=== PATIENT | female | born 1975 | race Hispanic/Latino ===

== ENCOUNTER → 2020-12-11 | Outpatient (CLI) | payer MEDICARE ==
[~2020-12-11] VITALS: Ht 7.6 cm; Wt 114.3 kg
== END | disposition home or self-care (01) ==
LOC: DTH 12:10
PROVIDERS: ATTEND Surgery
DX: E66.01 Morbid (severe) obesity due to excess calories (principal); E11.9 Type 2 diabetes mellitus without complications
CPT/HCPCS: 97802

== ENCOUNTER → 2021-01-08 | Outpatient (CLI) | payer MEDICARE ==
[2021-01-08 12:39] LABS: BASOPHILS % (AUTO) 0.8 % (0.0-5.0); EOSINOPHILS % (AUTO) 5.1 % (0.0-8.0); HEMATOCRIT 40.3 % (36-48); LYMPHOCYTES % (AUTO) 30.8 % (21.0-51.0); MEAN CORPUSCULAR HEMOGLOBIN 30.7 pg (27.0-33.0); MEAN CORPUSCULAR HGB CONC 34.2 g/dL (32.0-36.0); MEAN CORPUSCULAR VOLUME 89.6 fL (79-99); MONOCYTES % (AUTO) 6.1 % (3.0-13.0); NEUTROPHILS % (AUTO) 56.5 % (40.0-77.0); PLATELET COUNT (AUTO) 236 K/uL (130-400); RED CELL DISTRIBUTION WIDTH 13.2 % (11.0-15.5); WHITE BLOOD COUNT (AUTO) 7.7 K/uL (4.8-10.8)
[2021-01-08 12:49] LABS: HEMOGLOBIN A1C 8.7 % (4.0-6.0)
[2021-01-08 13:31] LABS: ALBUMIN 3.6 g/dL (3.5-5.0); BILIRUBIN,TOTAL 0.7 mg/dL (0.2-1.0); CREATININE 0.8 mg/dL (0.5-1.5); MAGNESIUM 1.6 mg/dL (1.80-2.40); POTASSIUM 4.1 mmol/L (3.5-5.1); THYROID STIMULATING HORMONE 2.32 uIU/mL (0.36-3.74); TOTAL PROTEIN, SERUM 7.4 g/dL (6.0-8.3)
== END | disposition home or self-care (01) ==
LOC: DTH 10:45
PROVIDERS: ATTEND Surgery
DX: E66.01 Morbid (severe) obesity due to excess calories (principal); I10 Essential (primary) hypertension; E11.9 Type 2 diabetes mellitus without complications; Z98.84 Bariatric surgery status; Z68.41 Body mass index [BMI] 40.0-44.9, adult; M25.50 Pain in unspecified joint
CPT/HCPCS: 36415; 80053; 80061; 82306; 82607; 82746; 83036; 83540; 83735; 84207; 84425; 84443; 84446; 84481; 84590; 84630; 85025; 97803

== ENCOUNTER 2021-02-07 07:03 | Day surgery (SDC) | payer MEDICARE ==
[~2021-02-07] VITALS: Ht 162.6 cm; Wt 113.4 kg
[~2021-02-07 07:03] MED LIST: CALC750T4 PO; LOSA1TAB42 PO; METF-444 PO
[2021-02-07] MEDS ORDERED: SODIUM CHLORIDE 0.9% 1000ML 1,000 ML IV ONE (07:08)
[2021-02-07 08:01] VITALS: BP 168/99
[2021-02-07] MEDS ORDERED: PROPOFOL 10 MG/ML 20ML VIAL IV ONE (09:01)
[2021-02-07] MEDS ORDERED: MIDAZOLAM HCL 1 MG/ML 2ML VIAL ONE (09:01)
[2021-02-07] MEDS ORDERED: GLYCOPYRROLATE 1 MG/5 ML SYRINGE ONE (09:01)
[2021-02-07] MEDS ORDERED: KETAMINE 50MG/ML SYRINGE 50 MG/ML DISP.SYRIN IV ONE (09:01)
[2021-02-07] MEDS ORDERED: LIDOCAINE PF 100MG/5ML (2%) SYRINGE 5ML ONE (09:01)
[2021-02-07 09:20] VITALS: BP 178/93
== END 2021-02-07 09:55 | disposition home or self-care (01) ==
LOC: ENDO 07:03 → DAH 07:03 → ENDO 09:55
PROVIDERS: ATTEND Surgery
DX: K21.9 Gastro-esophageal reflux disease without esophagitis (principal); I10 Essential (primary) hypertension; Z20.822 Contact with and (suspected) exposure to COVID-19; E11.9 Type 2 diabetes mellitus without complications; E66.01 Morbid (severe) obesity due to excess calories; Z98.891 History of uterine scar from previous surgery; Z90.49 Acquired absence of other specified parts of digestive tract; Z79.899 Other long term (current) drug therapy; Z68.42 Body mass index [BMI] 45.0-49.9, adult; Z83.3 Family history of diabetes mellitus; Z82.49 Family history of ischemic heart disease and other diseases of the circulatory system; Z80.42 Family history of malignant neoplasm of prostate; Z79.84 Long term (current) use of oral hypoglycemic drugs; Z98.890 Other specified postprocedural states
CPT/HCPCS: 43235; 82948; 87635; A4215 ×2; A4221; A4222; A4223; A4606; A4620; A4657; A4663; C9803; J2001; J2250; J2704; J3490 ×2; J7030

== ENCOUNTER → 2021-02-10 | Outpatient (CLI) | payer MEDICARE ==
[~2021-02-10] VITALS: Ht 160 cm; Wt 114.8 kg
[2021-02-14 11:19] VITALS: BP 186/101
[2021-02-14 11:25] VITALS: BP 165/80
== END | disposition home or self-care (01) ==
LOC: DTH 11:02
PROVIDERS: ATTEND Surgery
DX: E66.01 Morbid (severe) obesity due to excess calories (principal); E11.9 Type 2 diabetes mellitus without complications; I10 Essential (primary) hypertension; M19.91 Primary osteoarthritis, unspecified site
CPT/HCPCS: 97803

== ENCOUNTER 2021-07-22 09:30 | Emergency (ER) | payer MEDICARE ==
[~2021-07-22] VITALS: Ht 162.6 cm; Wt 89.4 kg
[~2021-07-22 09:30] MED LIST changes: -CALC750T4 PO
[2021-07-22 09:36] VITALS: BP 176/111
[2021-07-22] MEDS ORDERED: NAPROXEN 500 MG TABLET PO SCH (10:00)
[2021-07-22] MEDS ORDERED: LIDOCAINE HCL 1% 10 ML VIAL ONE (10:52)
[2021-07-22] MEDS ORDERED: TRIAMCINOLONE ACETONIDE 40 MG/ML 1ML VIAL INJ SCH (11:00)
[2021-07-22] MEDS ORDERED: CELE-84 PO (12:09)
[2021-07-22 14:59] LABS: APPEARANCE BODY FLUID SLIGHTLY CLOUDY (CLEAR); BODY FLUID WBC 102 /cu. mm.; COLOR,BODY FLUID YELLOW (LT YELLOW); SPECIMENTYPE,BODY FLUID SYNOVIAL; TOTAL VOLUME,BODY FLUID 44 mL
[2021-07-22 15:01] LABS: BODY FLUID RBC 124 /cu. mm.
[2021-07-22 15:19] LABS: BF EOSINOPHIL 2 %; BF LYMPHOCYTE 59 %; BF MONOCYTE 19 %
== END 2021-07-22 12:32 | disposition home or self-care (01) ==
LOC: EDH 09:30
DX: M25.462 Effusion, left knee (principal); M25.562 Pain in left knee; E11.9 Type 2 diabetes mellitus without complications; I10 Essential (primary) hypertension; Z79.1 Long term (current) use of non-steroidal anti-inflammatories (NSAID); Z79.84 Long term (current) use of oral hypoglycemic drugs; Z79.899 Other long term (current) drug therapy; Z98.84 Bariatric surgery status
CPT/HCPCS: 20610; 73562; 84560; 87071; 87205; 89051; 99284; J3301; J3490

== ENCOUNTER 2021-09-02 16:26 | Emergency (ER) | payer MEDICARE ==
[~2021-09-02] VITALS: Ht 162.6 cm; Wt 88.5 kg
[~2021-09-02 16:26] MED LIST changes: +CELE-84 PO
[2021-09-02] MEDS ORDERED: LIDOCAINE HCL 400MG/20ML VIAL ONE (18:08)
[2021-09-02 18:59] VITALS: BP 180/80
== END 2021-09-02 19:08 | disposition home or self-care (01) ==
LOC: EDH 16:26
DX: M25.462 Effusion, left knee (principal); E11.9 Type 2 diabetes mellitus without complications; I10 Essential (primary) hypertension; Z79.1 Long term (current) use of non-steroidal anti-inflammatories (NSAID); Z79.84 Long term (current) use of oral hypoglycemic drugs; Z79.899 Other long term (current) drug therapy; Z98.84 Bariatric surgery status
CPT/HCPCS: 20610; 73562; 89060; 99284; J3490

== ENCOUNTER 2022-01-27 23:31 | Emergency (ER) | payer MEDICARE ==
[~2022-01-27] VITALS: Ht 162.6 cm; Wt 79.8 kg
[2022-01-28] MEDS ORDERED: MAG/ALUM/SIMETH 30 ML UDCUP PO ONE (00:30)
[2022-01-28] MEDS ORDERED: HYOSCYAMINE SULFATE 0.125 MG TAB.SUBL SL ONE (00:30)
[2022-01-28 00:44] LABS: BASOPHILS % (AUTO) 0.3 % (0.0-5.0); EOSINOPHILS % (AUTO) 1.6 % (0.0-8.0); HEMATOCRIT 36.1 % (36-48); LYMPHOCYTES % (AUTO) 11.3 % (21.0-51.0); MEAN CORPUSCULAR HEMOGLOBIN 31.6 pg (27.0-33.0); MEAN CORPUSCULAR HGB CONC 34.6 g/dL (32.0-36.0); MEAN CORPUSCULAR VOLUME 91.2 fL (79-99); MONOCYTES % (AUTO) 8.7 % (3.0-13.0); NEUTROPHILS % (AUTO) 77.8 % (40.0-77.0); PLATELET COUNT (AUTO) 175 K/uL (130-400); RED BLOOD CELL COUNT(AUTO) 3.96 MIL/uL (4.00-5.50); RED CELL DISTRIBUTION WIDTH 12.3 % (11.0-15.5); WHITE BLOOD COUNT (AUTO) 6.1 K/uL (4.8-10.8)
[2022-01-28] MEDS ORDERED: ACETAMINOPHEN 500 MG TABLET ONE (00:44)
[2022-01-28 00:58] LABS: CREATININE 0.7 mg/dL (0.5-1.5); POTASSIUM 3.6 mmol/L (3.5-5.1)
[2022-01-28 01:04] LABS: ALBUMIN 3.8 g/dL (3.5-5.0); BILIRUBIN,TOTAL 0.5 mg/dL (0.2-1.0); TOTAL PROTEIN, SERUM 6.8 g/dL (6.0-8.3)
[2022-01-28 06:05] VITALS: BP 149/85
[2022-01-28] MEDS ORDERED: FAMO-136 PO (06:37)
[2022-01-28] MEDS ORDERED: NIRM1TAB PO (06:37)
[2022-01-28] MEDS ORDERED: ACETAMINOPHEN 500 MG TABLET PO SCH (07:00)
== END 2022-01-28 06:57 | disposition home or self-care (01) ==
LOC: EDH 23:31
DX: U07.1 COVID-19 (principal); F41.9 Anxiety disorder, unspecified; R10.13 Epigastric pain; I10 Essential (primary) hypertension; Z79.1 Long term (current) use of non-steroidal anti-inflammatories (NSAID); Z79.84 Long term (current) use of oral hypoglycemic drugs; Z79.899 Other long term (current) drug therapy; Z98.84 Bariatric surgery status
CPT/HCPCS: 36415; 71045; 80053; 81025; 82550; 83690; 84484; 85025; 87635; 87804 ×2; 87880; 93005; 99285; C9803

== ENCOUNTER 2025-03-28 20:54 | Emergency (ER) | payer MEDICARE ==
[~2025-03-28] VITALS: Ht 162.6 cm; Wt 75.3 kg
[~2025-03-28 20:54] MED LIST changes: +ACET-2743 PO; +ACET-3859 PO; +AEC81 PO; +CELE-125 PO; -CELE-84 PO; +FAMO-136 PO; +HYDR-3421 PO; +LOSA-422 PO; +NIRM1TAB PO
[2025-03-28 21:37] LABS: IMMATURE GRANULOCYTE ABSOLUTE 0.00 K/uL (0-1); NUCLEATED RED BLOOD CELLS 0.0 % (0.0-0.19); PLATELET COUNT (AUTO) 261 K/uL (130-400); RED BLOOD CELL COUNT(AUTO) 3.92 MIL/uL (4.00-5.50); RED CELL DISTRIBUTION WIDTH 13.4 % (11.0-15.5); WHITE BLOOD COUNT (AUTO) 6.3 K/uL (4.8-10.8)
--- NOTE | 2025-03-28 21:39 | ERN ---
ED Note History of Present Illness Stated Complaint: C/O PAIN WITH BURNING WHEN VOIDING X 1 WK Chief Complaint: Painful Urination Time Seen by MD: 20:56 Time Seen by Midlevel: 20:56 Dictation: The patient is a 49-year-old female with a history of diabetes, hypertension who presents to the emergency department with complaints of two weeks of burning urination. Patient reports she has been treating herself antibiotics from [facility] and reports she was on penicillin and Bactrim but continues with the the symptoms. Patient denies any fevers. Denies any flank pain. Denies any vomiting or diarrhea. Patient reports that she is supposed to be on antihypertensive medication but she is noncompliant because she states her losartan makes her feel bad. Allergies: Coded Allergies: No Known Allergies (Unverified Allergy, Unknown, 12/18/22) No Known Drug Allergies (Unverified Allergy, Unknown, 02/06/21) Home Meds Active Scripts Acetaminophen (Acetaminophen) 325 Mg Tablet, 650 MG PO QID for 10 Days, #60 TAB Prov:GLORIA MELENDREZ MD 06/16/22 Hydroxyzine HCl (Hydroxyzine HCl) 25 Mg Tablet, 25 MG PO TID, #30 TAB Prov:DULCE MARIA SUANDERS 02/09/22 Nirmatrelvir/Ritonavir (Paxlovid Co-Pack (Eua)) 1 Each Tablet, 1 EACH PO BID, #10 PACK 0 Refills Prov:CHANTEL DINERO MD 01/28/22 Famotidine (Pepcid) 20 Mg Tablet, 20 MG PO BID, #30 TAB 0 Refills Prov:CHANTEL DINERO MD 01/28/22 Celecoxib (Celecoxib) 200 Mg Capsule, 200 MG PO DAILY, #20 CAP Prov:AIDA CRUZ MD 07/22/21 Reported Medications Metformin HCl (Metformin HCl) 500 Mg Tablet, 500 MG PO BID, TAB 02/06/21 Losartan/Hydrochlorothiazide (Losartan-Hctz 100-12.5 mg Tab) 1 Each Tablet, 1 EACH PO DAILY, TAB 02/06/21 Losartan/Hydrochlorothiazide (Hyzaar 50-12.5 Tablet) 1 Each Tablet, 1 EACH PO DAILY, TAB 01/22/21 Aspirin (ASPIRIN 81 MG ECTAB) 81 Mg Ectab, 81 MG PO DAILY, TAB.EC 01/22/21 Acetaminophen (Tylenol Extra Strength) 500 Mg Tablet, 1000 MG PO Q4PRN, TAB 01/22/21 Past Medical History Past Medical History: Diabetes-Type II, Hypertension Surgical History: Other Surgical History Other: GASTRIC BYPASS Family History: Negative Social History: Negative, Lives with family History: Not Applicable RN Note Reviewed/Agreed w/PFSH: Yes Review of System Dictation Constitutional: Negative for fever,chills, and weight loss Eyes: Negative for injury, pain,redness, and discharge ENT: Negative for injury,pain or swelling Cardiovascular: Negative for chest pain, palpitations, and edema Respiratory: Negative for shortness of breath, cough, and wheezing, Abdomen/GI: Negative for abdominal pain, nausea, vomiting, diarrhea, and constipation Back: Negative for injury and pain : Positive for burning urination MS/Extremity: Negative for injury and deformity Skin: Negative for rash, and discoloration Neuro: Negative for headache, weakness, numbness, tingling, and seizure Psych: Negative for suicide ideation, homicidal ideation, and hallucinations Initial Vital Sign VS Vital Signs Date Time Temp Pulse Resp B/P (MAP) Pulse Ox O2 Delivery O2 Flow Rate FiO2 03/28/25 20:56 97.9 70 18 205/105 99 Room Air 03/28/25 23:01 0 21 Physical Exam Dictation Vital Signs reviewed General Appearance: Alert, oriented x 3, no acute distress, well developed, nourished. Head and Face: non-traumatic. Eyes: PERRL, pink conjunctivas, eyelid no trauma, anterior chamber with arcus senilis. Ears: Pinnas intact and no signs of trauma or erythema ear canals clear and no discharge TM no erythema Nose: No discharge, no bleeding. Oropharynx: Mouth normal, tongue pink. pharynx clear,no erythema, tonsils no exudates, no abscesses noted, mucous membrane moist Neck: Supple, non-tender, no thyromegaly, no masses, no JVD, no bruits Breast:Deferred Chest:No tenderness, no crepitus, no paradoxical movement, no retractions Lungs:Clear, well-ventilated, symmetric, no rales, no wheezing, no rhonchi, no stridor, good breath sounds bilaterally Heart: Regular rate, regular rhythm, no murmur, no gallops Vascular: no peripheral edema, Abdomen: Soft, positive bowel sounds, nondistended, no guarding, nontender, no rebound, no masses no hepatomegaly, no splenomegaly, no Quach's sign, no hernias. Rectal: Deferred Genital: Deferred Neurological: Normal speech, motor function intact, sensory function intact , upper extremities equal in strength, lower extremities equal in strength, no facial droop Musculoskeletal: Neck nontender, full range of motion, back nontender, full range of motion, Extremities: nontender, full range of motion Skin: Color pink, dry, no turgor, no rash, no lacerations, no abrasions, no contusions. Lymphatic: Deferred Results (Laboratory/Radiology) Laboratory/Radiology Laboratory Tests Test 03/28/25 21:02 03/28/25 21:25 Urine Color DARK-YELLOW (YELLOW) Urine Appearance CLEAR (CLEAR) Urine pH 6.0 (5.0-8.0) Urine Specific Hematite 1.022 (1.001-1.031) Urine Protein NEGATIVE mg/dL (NEGATIVE) Urine Glucose (UA) NEGATIVE mg/dL (NEGATIVE) Urine Ketones NEGATIVE mg/dL (NEGATIVE) Urine Occult Blood NEGATIVE (NEGATIVE) Urine Nitrate 1+ (NEGATIVE) H Urine Bilirubin NEGATIVE mg/dL (NEGATIVE) Urine Urobilinogen 2.0 mg/dL (0.2-1.0) H Urine Leukocyte Esterase NEGATIVE Trace/uL Urine RBC 2-5 /HPF (0-1) H Urine WBC 2-5 /HPF (0-1) H Urine Squamous Epithelial Cells RARE /HPF (0-2) Urine Bacteria None /HPF (None Seen) Urine HCG, Qualitative NEGATIVE (NEGATIVE) White Blood Count 6.3 K/uL (4.8-10.8) Red Blood Count 3.92 MIL/uL (4.00-5.50) L Hemoglobin 12.4 g/dL (12.0-16.0) Hematocrit 36.2 % (36-48) Mean Corpuscular Volume 92.3 fL (79-99) Mean Corpuscular Hemoglobin 31.6 pg (27.0-33.0) Mean Corpuscular Hemoglobin Concent 34.3 g/dL (32.0-36.0) Red Cell Distribution Width 13.4 % (11.0-15.5) Platelet Count 261 K/uL (130-400) Mean Platelet Volume 9.7 fL (7.5-10.5) Immature Granulocyte % (Auto) 0.0 % (0-1) Neutrophils (%) (Auto) 49.0 % (40.0-77.0) Lymphocytes (%) (Auto) 41.9 % (21.0-51.0) Monocytes (%) (Auto) 6.3 % (3.0-13.0) Eosinophils (%) (Auto) 2.2 % (0.0-8.0) Basophils (%) (Auto) 0.6 % (0.0-5.0) Neutrophils # (Auto) 3.1 K/uL (1.8-7.7) Lymphocytes # (Auto) 2.7 K/uL (1.0-4.8) Monocytes # (Auto) 0.4 K/uL (0.1-1.0) Eosinophils # (Auto) 0.14 K/uL (0.00-0.70) Basophils # (Auto) 0.04 K/uL (0.00-0.20) Absolute Immature Granulocyte (auto 0.00 K/uL (0-1) Nucleated Red Blood Cells 0.0 % (0.0-0.19) Sodium Level 141 mmol/L (136-145) Potassium Level 3.9 mmol/L (3.5-5.1) Chloride Level 106 mmol/L (101-111) Carbon Dioxide Level 32 mmol/L (21-32) Blood Urea Nitrogen 16 mg/dL (7-18) Creatinine 0.7 mg/dL (0.5-1.0) Glomerular Filtration Rate Calc 107 mL/min (>90) Random Glucose 94 mg/dL (70-105) Total Calcium 8.5 mg/dL (8.5-10.1) Labs Reviewed?: Yes ED Course ED Course Orders Procedure Category Date Status Time Urinalysis Profile LAB 03/28/25 Complete 21:10 ,Urine Test LAB 03/28/25 Complete 21:10 Cbc With Differential LAB 03/28/25 Complete 21:10 Basic Metabolic Panel LAB 03/28/25 Complete 21:10 Culture Urine HAYES 03/28/25 In Process 21:49 Ceftriaxone 1g Vial PHA 03/28/25 Complete (Rocephine 1g Inj) 22:00 Hydralazine 20mg Inj PHA 03/28/25 Complete (Apresoline 20mg In 22:30 Hydralazine 20mg Inj PHA 03/28/25 Transmitted (Apresoline 20mg In 23:30 Current Medications Medications (Trade) Dose Ordered Sig/Med Route PRN Reason Start Time Stop Time Status Last Admin Dose Admin Ceftriaxone Sodium (ROCEphine 1G INJ) 1 gm ONCE ONCE IM 03/28/25 22:00 03/28/25 22:01 DC 03/28/25 22:26 Hydralazine HCl (APRESOLine 20MG INJ) 10 mg ONCE ONCE IV 03/28/25 22:30 03/28/25 22:31 DC 03/28/25 22:26 Vital Signs Date Time Temp Pulse Resp B/P (MAP) Pulse Ox O2 Delivery O2 Flow Rate FiO2 03/28/25 23:01 98.1 79 16 177/101 100 Room Air* 0 21 03/28/25 20:56 97.9 70 18 205/105 99 Room Air Medical Decision Making MDM The patient is a 49-year-old female with a history of diabetes, hypertension who presents to the emergency department with complaints of two weeks of burning urination. Patient reports she has been treating herself antibiotics from [place] and reports she was on penicillin and Bactrim but continues with the the symptoms. Patient denies any fevers. Denies any flank pain. Denies any vomiting or diarrhea. Patient reports that she is supposed to be on antihypertensive medication but she is noncompliant because she states her losartan makes her feel bad. CBC showed no leukocytosis, no anemia, chemistry showed no electrolyte i mbalance, normal renal function urinalysis positive for nitrites. Patient giving a dose of Rocephin. Patient also noted to be hypertensive although asymptomatic. Reports she is noncompliant with her hypertension medication but she reports that also the hospitalist make her nervous and her blood pressure goes up. On physical exam patient is in no acute distress, nontender abdomen, neurologically intact. Patient was giving IV hydralazine. Blood pressure improving. Patient reports she has her medications at home. Instructed to take her medications for her blood pressure and patient educated on the risks of uncontrolled hypertension. Patient will be discharged to follow up with PCP and instructed to follow up on urine cultures Differential diagnosis: UTI, sepsis, dehydration, electrolyte imbalance Need for hospitalization: Patient does not meet criteria for hospitalization. There are no social concerns with this patient. DX & DISP Disposition: Discharge Departure Impression: Primary Impression: UTI (urinary tract infection) Additional Impression: Uncontrolled hypertension Condition: Stable Scripts Nitrofurantoin Monohyd/M-Cryst (Macrobid 100 mg Capsule) 100 Mg Capsule 1 CAP PO BID for 5 Days, #10 CAP 0 Refills Prov: SAVANA HOLLEY 03/28/25 Additional Instructions: Your labs were unremarkable but your urine did show you have a urinary tract infection. Take your antibiotics as prescribed and until finished. You will need to follow up on urine culture in about who three days. Follow up with your primary doctor for this. I advised you continue taking your blood pressure m edication to avoid any further complications. Follow up with your primary doctor in 1-2 days. FOLLOW-UP WITH PRIMARY CARE PROVIDER IN 1 TO 2 DAYS. TAKE MEDICATIONS DIRECTED HERE IN THE EMERGENCY ROOM. OKAY TO CONTINUE HOME MEDICATIONS UNLESS OTHERWISE DISCUSSED DURING YOUR VISIT IN THE EMERGENCY ROOM TODAY. RETURN TO YOUR NEAREST EMERGENCY ROOM IF SYMPTOMS WORSEN OR IF THERE IS NO IMPROVEMENT. CALL 911 IF YOU NEED IMMEDIATE ASSISTANCE. TAKE TYLENOL [id number] NEEDED AND IF NO CONTRAINDICATIONS ARE PRESENT. INCREASE ORAL HYDRATION. A WOUND CULTURE OR URINE CULTURE WAS ORDERED HERE IN THE EMERGENCY ROOM DEPARTMENT PLEASE FOLLOW-UP WITH PRIMARY CARE PROVIDER AND ADVISE THEM TO GET REPEAT PORTS FROM OUR FACILITY. IF YOU HAD ANY KILO WRAP/SPLINTS THAT WERE APPLIED HERE, PLEASE DO NOT REMOVE THEM UNTIL YOU SEE YOUR PRIMARY CARE OR SPECIALTY. Referrals: SELF,REFERRAL (PCP) Time of Disposition: 23:08 I have reviewed the case, and I agree with, Diagnosis and Plan SAVANA HOLLEY [employer] Mar 28, 2025 21:39
[2025-03-28 21:46] LABS: CREATININE 0.7 mg/dL (0.5-1.0); GLOMERULAR FILTR. RATE CALC 107.0 mL/min (>90); GLUCOSE,RANDOM 94.0 mg/dL (70-105); SODIUM SERUM 141.0 mmol/L (136-145); UREA NITROGEN, BLOOD 16.0 mg/dL (7-18)
[2025-03-28 21:47] LABS: APPEARANCE,URINE CLEAR (CLEAR); GLUCOSE, URINE (UA) NEGATIVE (NEGATIVE); LEUKOCYTE ESTERASE ,URINE NEGATIVE Leu/uL (NEGATIVE); NITRATE,URINE 1+ (NEGATIVE); OCCULT BLOOD,URINE NEGATIVE (NEGATIVE)
[2025-03-28 21:49] LABS: ADD UA MICROSCOPIC YES
[2025-03-28 21:50] LABS: SQUAMOUS EPITHELIAL CELL,UR RARE /HPF (0-2)
[2025-03-28 21:57] LABS: HCG,QUALITATIVE URINE NEGATIVE (NEGATIVE)
[2025-03-28] MEDS ORDERED: NITR100C4 PO (23:08)
[2025-03-28 23:46] VITALS: BP 146/84; PULSE 82; RESP 16; TEMP 98.1; O2SAT 98
== END 2025-03-28 23:49 | disposition home or self-care (01) ==
LOC: EDH 20:54
DX: N39.0 Urinary tract infection, site not specified (principal); I10 Essential (primary) hypertension; E11.9 Type 2 diabetes mellitus without complications; Z79.1 Long term (current) use of non-steroidal anti-inflammatories (NSAID); Z79.82 Long term (current) use of aspirin; Z79.84 Long term (current) use of oral hypoglycemic drugs; Z79.899 Other long term (current) drug therapy; Z98.84 Bariatric surgery status
CPT/HCPCS: 99284; 96374; 96372; 80048; 85025; 87086; 81001; 81025; 36415; 96376; J0360 ×2; J0696